=== PATIENT | male | born 1980 | race Caucasian/White ===

== ENCOUNTER 2016-12-30 11:33 | Emergency (ER) | payer OTHER ==
[2016-12-30] MEDS ORDERED: Sodium Chloride 0.9% 10 ML Syringe FLUSH PRN (12:05)
[2016-12-30] MEDS ORDERED: Morphine 10 MG/ML Syringe IVPUSH ONE ×2 (12:06→12:49)
[2016-12-30] MEDS ORDERED: Ondansetron 4 MG Tab.DIS PO ONE (12:07)
--- NOTE | 2016-12-30 13:26 | CR ---
Amputation at the fourth distal tuft with a few tiny fracture fragments appears remote. No acute frac ture.
--- NOTE | 2016-12-30 13:34 | EDM.PDOC ---
ED HPI GENERAL MEDICAL PROBLEM - General Chief Complaint: Burn Stated Complaint: LEFT HAND INJURY Time Seen by Provider: 12/30/16 12:03 Source of Information: Reports: Patient History Limitations: Reports: No Limitations - History of Present Illness INITIAL COMMENTS - FREE TEXT/NARRATIVE: This gentleman was at work today when the fingers of the nondominant left hand were caught in a hot press which crashed and burned them. He complains of extreme pain to the fingers and is unable to move them. Left Hand Pain Score (Numeric/FACES): 10 - Related Data Allergies Allergy/AdvReac Type Severity Reaction Status Date / Time No Known Allergies Allergy Verified 12/30/16 12:05 Home Meds: Home Meds NK [No Known Home Meds] 12/30/16 [History] Past Medical History Musculoskeletal History: Reports: Fracture Other Musculoskeletal History: left hand finger surgery Psychiatric History: Reports: Learning Disability - Past Surgical History HEENT Surgical History: Reports: Eye Surgery Other HEENT Surgeries/Procedures: left lazy eye surgery Musculoskeletal Surgical History: Reports: None Social & Family History - Tobacco Use Smoking Status *Q: Current Every Day Smoker Years of Tobacco use: 18 Packs/Tins Daily: 1 Used Tobacco, but Quit: No Second Hand Smoke Exposure: No - Caffeine Use Caffeine Use: Reports: Coffee, Soda - Recreational Drug Use Recreational Drug Use: No ED ROS GENERAL - Review of Systems Review Of Systems: ROS reveals no pertinent complaints other than HPI. ED EXAM, BURN/SMOKE INHALATION - Physical Exam Exam: See Below Exam Limited By: No Limitations General Appearance: Alert, WD/WN, Moderate Distress Extremities: Other (There are chambers to the left index ring and middle fingers of the left hand. The dorsum of these fingers has a brewer color to the tissue indicating probably third-degree chambers. The palmar surface of these fingers it' s less clear if there's third-degree burn. Tissue to the medial and lateral side of each finger is pink and this pinkness extends to the distal phalanges. The nails however or dusky. The patient has extreme pain to the fingers and is unable to flex any of the fingers. The pulse ox is able to olive picker pulses to each fingertip. There is a small burn to the dorsum of the distal phalanx of the fifth finger.) Course - Vital Signs Last Recorded V/S: Last Vital Signs Temp 35.9 C 12/30/16 12:47 Pulse 65 12/30/16 12:47 Resp 14 12/30/16 12:47 BP 115/69 12/30/16 12:47 Pulse Ox 98 12/30/16 12:47 - Orders/Labs/Meds Orders: Active Orders 24 hr Category Date Time Status Sodium Chloride 0.9% [Saline Flush] Med 12/30/16 12:05 Active 10 ml FLUSH ASDIRECTED PRN Saline Lock Insert [OM.PC] Urgent Oth 12/30/16 12:05 Ordered Medication Orders Sodium Chloride (Saline Flush) 10 ml FLUSH ASDIRECTED PRN PRN Reason: Keep Vein Open Last Admin: 12/30/16 12:25 Dose: 10 ml Meds: Medications Generic Name Dose Route Start Last Admin Trade Name Freq PRN Reason Stop Dose Admin Sodium Chloride 10 ml 12/30/16 12:05 12/30/16 12:25 Saline Flush FLUSH 10 ml ASDIRECTED PRN Administration Keep Vein Open Discontinued Medications Generic Name Dose Route Start Last Admin Trade Name Freq PRN Reason Stop Dose Admin Morphine Sulfate 10 mg 12/30/16 12:06 12/30/16 12:24 Morphine IVPUSH 12/30/16 12:07 10 mg ONETIME ONE Administration Morphine Sulfate 10 mg 12/30/16 12:49 12/30/16 12:53 Morphine IVPUSH 12/30/16 12:50 10 mg ONETIME ONE Administration Ondansetron HCl 4 mg 12/30/16 12:07 12/30/16 12:24 Zofran Odt PO 12/30/16 12:08 4 mg ONETIME ONE Administration - Radiology Interpretation Free Text/Narrative:: No obvious fracture or dislocation to the left hand - Re-Assessments/Exams Free Text/Narrative Re-Assessment/Exam: 12/30/16 13:32 Dr. King our surgeon examined the patient briefly and felt that it would be best to send him to a burn unit. Call was placed to [facility] where I spoke with the ER physician Dr. CRUZ. He accepted the patient. The patient's will be able to drive him to the hospital. She appears to be competent to do this safely. We'll give him a prescription for Percocet he'll olive picker at [facility] in route Departure - Departure Time of Disposition: 13:34 Disposition: DC/Tfer to Acute Hospital 02 Condition: Serious Clinical Impression: Burn of multiple fingers excluding thumb, Crushing injury of finger(s) - Discharge Information Referrals: PCP,None [Primary Care Provider] - Additional Instructions: Go to the emergency department at [facility]. Get the prescription for Percocet 5/325, #[address] to the hospital. You should take one every 4 hours. This medication can cause sedation and impair driving and operating machinery just for future reference. This is a serious injury and needs prompt evaluation and treatment to avoid losing your fingers. - My Orders Last 24 Hours: My Active Orders 12/30/16 12:05 Sodium Chloride 0.9% [Saline Flush] 10 ml FLUSH ASDIRECTED PRN Saline Lock Insert [OM.PC] Urgent - Assessment/Plan Last 24 Hours: My Active Orders 12/30/16 12:05 Sodium Chloride 0.9% [Saline Flush] 10 ml FLUSH ASDIRECTED PRN Saline Lock Insert [OM.PC] Urgent
== END 2016-12-30 14:25 ==
LOC: JP.ED 11:33
DX: S67.10XA Crushing injury of unspecified finger(s), initial encounter (principal); T23.032A Burn of unspecified degree of multiple left fingers (nail), not including thumb, initial encounter; F17.210 Nicotine dependence, cigarettes, uncomplicated; X19.XXXA Contact with other heat and hot substances, initial encounter; Y99.0 Civilian activity done for income or pay
CPT/HCPCS: 73130; 96374; 96376; 99284; A9270; J2270; J7050

== ENCOUNTER 2017-04-27 12:59 | Emergency (ER) | payer SELFPAY ==
--- NOTE | 2017-04-27 13:51 | EDM.PDOC ---
ED HPI GENERAL MEDICAL PROBLEM - General Chief Complaint: Upper Extremity Injury/Pain Stated Complaint: LT HAND IS INFECTED Time Seen by Provider: 04/27/17 13:35 Source of Information: Reports: Patient, Family History Limitations: Reports: No Limitations - History of Present Illness INITIAL COMMENTS - FREE TEXT/NARRATIVE: 36-year-old male with healing chambers on his left hand, is in because the last 48 hours his middle fingers become reddened and more swollen, slightly more tender. No fevers or chills. No reinjury. There is a small amount of drainage from the finger at the PIP joint dorsally intermittently since his skin graft. Onset: Gradual (Over the past 2 days) Location: Reports: Upper Extremity, Left Severity: Mild Associated Symptoms: Reports: No Other Symptoms - Related Data Allergies Allergy/AdvReac Type Severity Reaction Status Date / Time No Known Allergies Allergy Verified 12/30/16 12:05 Home Meds: Home Meds oxyCODONE 5 mg PO TID PRN 04/27/17 [History] Past Medical History Musculoskeletal History: Reports: Fracture Other Musculoskeletal History: left hand finger surgery Psychiatric History: Reports: Learning Disability - Past Surgical History HEENT Surgical History: Reports: Eye Surgery Other HEENT Surgeries/Procedures: left lazy eye surgery Musculoskeletal Surgical History: Reports: None Social & Family History - Tobacco Use Smoking Status *Q: Heavy Tobacco Smoker Years of Tobacco use: 18 Packs/Tins Daily: 1 Used Tobacco, but Quit: No Second Hand Smoke Exposure: No - Caffeine Use Caffeine Use: Reports: Coffee - Recreational Drug Use Recreational Drug Use: No Review of Systems - Review of Systems Review Of Systems: See Below Constitutional: Denies: Fever Eyes: Reports: No Symptoms Respiratory: Reports: No Symptoms Cardiovascular: Reports: No Symptoms GI/Abdominal: Reports: No Symptoms Skin: Reports: Erythema Psychiatric: Reports: No Symptoms ED EXAM, GENERAL - Physical Exam Exam: See Below Exam Limited By: No Limitations General Appearance: Alert, No Apparent Distress Respiratory/Chest: No Respiratory Distress Extremities: Other (Exam is otherwise limited to the left hand. Patient has healing skin graft wounds on the dorsal aspect of the middle and ring fingers. The middle finger does have increased erythema, a small amount of swelling and tenderness to palpation. No fluctuance.) Course - Vital Signs Last Recorded V/S: Last Vital Signs Temp 97.2 F 04/27/17 13:32 Pulse 67 04/27/17 13:32 Resp 16 04/27/17 13:32 BP 127/72 04/27/17 13:32 Pulse Ox 99 04/27/17 13:32 - Re-Assessments/Exams Free Text/Narrative Re-Assessment/Exam: 04/27/17 13:50 It appears he's developing an early cellulitis of the middle finger. He'll be placed on Augmentin 875 mg twice daily for 10 days, use warm compresses and recheck in 2-3 days if not improving satisfactorily. Departure - Departure Time of Disposition: 13:59 Disposition: Home, Self-Care 01 Condition: Good Clinical Impression: Cellulitis of finger of left hand - Discharge Information Instructions: Cellulitis, Adult, [id number] Referrals: PCP,None [Primary Care Provider] - Forms: ED Department Discharge Care Plan Goals: Take antibiotic twice daily with food, and warm compresses to the finger at least twice daily will help. Recheck at any time if worsening, or consider rechecking in 2-3 days if not improving satisfactorily.
== END 2017-04-27 13:59 | disposition home or self-care (01) ==
LOC: JP.ED 12:59
DX: L03.012 Cellulitis of left finger (principal); F17.210 Nicotine dependence, cigarettes, uncomplicated
CPT/HCPCS: 99283; 99284

== ENCOUNTER 2020-01-15 21:12 | Emergency (ER) | payer MEDICAID ==
--- NOTE | 2020-01-15 22:05 | EDM.PDOC ---
ED HPI GENERAL MEDICAL PROBLEM - General Chief Complaint: General Stated Complaint: MEDICAL Time Seen by Provider: 01/15/20 21:50 Source of Information: Reports: Patient, Family History Limitations: Reports: No Limitations - History of Present Illness INITIAL COMMENTS - FREE TEXT/NARRATIVE: 39-year-old male developed a fever overnight, woke this morning sweaty and today has just generalized malaise and achiness. He has a mild sore throat but no other specific symptoms. He smokes a pack of cigarettes a day and has chronic wheezing. He is concerned he may have Covid because his significant other is , but he did have a test last week which was negative. He was feeling well since that last Covid test until this morning. 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 Denies nausea or vomiting, chest pain, rash, headache or diarrhea. Duration: Other (Has been feeling poorly for 12 hours) Location: Reports: Generalized Improves with: Reports: None Worsens with: Reports: None Associated Symptoms: Reports: Other (Mild sore throat, generalized myalgias) Generalized Pain Score (Numeric/FACES): 5 - Related Data Allergies Allergy/AdvReac Type Severity Reaction Status Date / Time No Known Allergies Allergy Verified 01/15/20 21:35 Home Meds: Home Meds Sildenafil [Viagra] 1 tab PO ASDIRECTED 01/15/20 [History] Past Medical History HEENT History: Reports: Impaired Vision Gastrointestinal History: Reports: GERD Musculoskeletal History: Reports: Fracture Other Musculoskeletal History: left hand finger surgery Psychiatric History: Reports: Anxiety, Bipolar, Depression, Learning Disability - Infectious Disease History Infectious Disease History: Reports: Chicken Pox - Past Surgical History HEENT Surgical History: Reports: Eye Surgery Other HEENT Surgeries/Procedures: left lazy eye surgery GI Surgical History: Reports: Hernia Repair/Other Musculoskeletal Surgical History: Reports: Other (See Below) Other Musculoskeletal Surgeries/Procedures:: left hand Social & Family History - Tobacco Use Tobacco Use Status *Q: Current Every Day Tobacco User Years of Tobacco use: 25 Packs/Tins Daily: 1 - Caffeine Use Caffeine Use: Reports: Coffee - Recreational Drug Use Recreational Drug Use: No ED ROS GENERAL - Review of Systems Review Of Systems: See Below Constitutional: Reports: Fever, Chills, Malaise HEENT: Reports: Throat Pain Respiratory: Reports: Wheezing (Chronic). Denies: Shortness of Breath, Cough Cardiovascular: Denies: Chest Pain GI/Abdominal: Reports: Decreased Appetite. Denies: Abdominal Pain, Nausea, Vomiting Musculoskeletal: Reports: Muscle Pain (Generalized muscle aches) Skin: Reports: Diaphoresis (Woke in a sweat this morning) Neurological: Denies: Headache, Weakness ED EXAM, GENERAL - Physical Exam Exam: See Below Exam Limited By: No Limitations General Appearance: Alert, No Apparent Distress Eye Exam: Bilateral Eye: Normal Inspection Throat/Mouth: Normal Inspection Head: Atraumatic Respiratory/Chest: No Respiratory Distress, Chest Non-Tender, Wheezing (A few scattered expiratory wheezes are heard symmetrically) Cardiovascular: Regular Rate, Rhythm. No: Tachycardia GI/Abdominal: Soft, Non-Tender Extremities: Normal Inspection Neurological: Alert, Oriented Psychiatric: Normal Affect, Normal Mood Skin Exam: Warm, Dry Course - Vital Signs Last Recorded V/S: Last Vital Signs Temp 96 F L 01/15/20 21:38 Pulse 84 01/15/20 21:38 Resp 16 01/15/20 21:38 BP 140/84 01/15/20 21:38 Pulse Ox 99 01/15/20 21:38 - Orders/Labs/Meds Orders: Active Orders 24 hr Category Date Time Status [id number] SARS-COV-2 RNA Routine Lab 01/15/20 22:16 Received CULTURE STREP A CONFIRMATION [] Routine Lab 01/15/20 22:06 Results STREP SCRN A RAPID W CULT CONF [RM] Routine Lab 01/15/20 22:06 Results - Re-Assessments/Exams Free Text/Narrative Re-Assessment/Exam: 01/15/20 22:05 A rapid strep was obtained as well as a Covid test. 01/15/20 22:36 Strep was negative, Covid is pending. Asked the patient to rest, fluids, and quarantine until his Covid test returns in 2-3 days. Departure - Departure Time of Disposition: 22:57 Disposition: Home, Self-Care 01 Clinical Impression: Viral syndrome - Discharge Information Instructions: Viral Illness, Adult Referrals: PCP,None [Primary Care Provider] - Forms: ED Department Discharge Care Plan Goals: Rest, fluids, a regular dose of ibuprofen should help and you should quarantine until your Covid test returns in the next 2 to 3 days. Return if worsening such as difficulty breathing or persistent vomiting. Sepsis Event Note (ED) - Evaluation Sepsis Screening Result: No Definite Risk - Focused Exam Vital Signs: Vital Signs Temp Pulse Resp BP Pulse Ox 01/15/20 21:38 96 F L 84 16 140/84 99 01/15/20 21:34 96 F L 84 16 140/84 99 - My Orders Last 24 Hours: My Active Orders 01/15/20 22:06 CULTURE STREP A CONFIRMATION [RM] Routine STREP SCRN A RAPID W CULT CONF [] Routine - Assessment/Plan Last 24 Hours: My Active Orders 01/15/20 22:06 CULTURE STREP A CONFIRMATION [RM] Routine STREP SCRN A RAPID W CULT CONF [RM] Routine
== END 2020-01-15 22:58 | disposition home or self-care (01) ==
LOC: JP.ED 21:12
DX: B34.9 Viral infection, unspecified (principal); Z20.828 Contact with and (suspected) exposure to other viral communicable diseases; F17.210 Nicotine dependence, cigarettes, uncomplicated
CPT/HCPCS: 87081; 87880-QW; 99282; 99283; U0002